=== PATIENT | male | born 1940 | race Caucasian/White ===

== ENCOUNTER 2017-03-27 22:37 | Emergency (ER) | payer OTHER ==
[2017-03-27 22:45] VITALS: RESP 16; TEMP 98.1; O2SAT 95
--- NOTE | 2017-03-27 23:21 | EDPHY ---
H & P Stated Complaint: feels like something is stuck in throat HPI/ROS: HPI The patient presents with foreign body sensation of throat. He says he ate dinner tonight which consisted of pork further zoo, CABG with apples, beats and Ross cell really. As he felt that something did not go down and that food was stuck in his throat. Because of this, he drink water, ate a peanut butter and jelly sandwich, coughed vigorously, however was not able to dislodge it. He does not have any difficulty tolerating his secretions, he does not have any drooling or vomiting. He over the last 1 hour began to experience hoarseness of his voice which was concerning to him so he came into the emergency department. In 2009 he was seen here in the emergency department after taking a vitamin C pill and had a similar constellation of symptoms. He had endoscopy performed which demonstrated epiglottitis. He was given Decadron, Benadryl, Pepcid. His symptoms were improved and he was discharged home. He has had no further episodes.. REVIEW OF SYSTEMS Constitutional: No fever, no chills. Eyes: No discharge. ENT: Positive for sore throat. Skin: No rashes. Neurological: No headache. PMHx: Hypertension, hypothyroidism Soc Hx: Lives at home with his PHYSICAL General Appearance: Alert, mild hoarseness of his voice Eyes: Pupils equal and round no pallor or injection ENT, Mouth: Mucous membranes moist, posterior pharynx appears normal Respiratory: Breathing comfortably Neurological: A&O, moves all extremities Skin: Warm and dry, no rashes Musculoskeletal: Neck is supple non tender Extremities: symmetrical, full range of motion Psychiatric: Patient is oriented X 3, there is no agitation Source: Patient Exam Limitations: No limitations - Personal History Current Tetanus/Diphtheria Vaccine: Unsure - Medical/Surgical History Hx Asthma: No Hx Chronic Respiratory Disease: No Hx Diabetes: No Hx Cardiac Disease: No Hx Renal Disease: No Hx Cirrhosis: No Hx Alcoholism: No Hx HIV/AIDS: No Hx Splenectomy or Spleen Trauma: No Other PMH: PMHx: hypothryoid, HTN, high triglycerides, kidney stones. PSHx: kidney stone, tonsillectomy - Social History Smoking Status: Never smoked Constitutional: Initial Vital Signs Temperature (C) 36.7 C 03/27/17 22:41 Heart Rate 81 03/27/17 22:41 Respiratory Rate 16 03/27/17 22:41 Blood Pressure 135/73 H 03/27/17 22:41 O2 Sat (%) 95 03/27/17 22:41 O2 Delivery Mode Room Air Allergies/Adverse Reactions: No Known Allergies Allergy (Unverified 09/26/09 21:12) Home Medications: Medication Instructions Recorded Aspirin EC 81 mg 09/26/09 Gemfibrozil 09/26/09 Levothyroxine 09/26/09 Lisinopril/Hctz 10 mg/12.5 mg 09/26/09 Medical Decision Making - Diagnostics Imaging Results: Imaging Impressions Soft Tissue Neck X-Ray 03/27/17 23:04 Impression: 1. Mild thickening of the epiglottis, which can be seen with epiglottitis. 2. 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 Findings discussed with Natasha Gupta MD 03/27/2017 at 23:36. Imaging: Discussed imaging studies w/ integrity engineer Radiologist, I viewed and interpreted images myself Differential Diagnosis: 76-year-old male with history of epiglottitis after swallowing a pill, now presents with feeling that something is stuck in his throat after eating dinner associated with hoarseness of his voice. Differential diagnosis includes epiglottitis, foreign body of oropharynx, proximal esophagus foreign body. In the emergency department, patient had soft tissue neck x-rays which did demonstrate prominent epiglottis. He his symptoms actually improved in the short time that he was here. I gave him Decadron, Pepcid, Benadryl which he had received for his previous episode, his symptoms continue to improve. I discussed the case with Dr. Chato Monteiro of [facility] who agrees on the above medications and that the patient can be safely discharged given resolution of symptoms with follow-up with ENT in the next few days. The patient is in agreement with this plan and is anxious to leave. - Data Points Medications Given: Discontinued Medications Dexamethasone (Decadron) 10 mg PO EDNOW ONE Stop: 03/27/17 23:41 Last Admin: 03/28/17 00:13 Dose: 10 mg Diphenhydramine HCl (Benadryl) 25 mg PO EDNOW ONE Stop: 03/27/17 23:41 Last Admin: 03/28/17 00:13 Dose: 25 mg Famotidine (Pepcid) 20 mg PO EDNOW ONE Stop: 03/27/17 23:42 Last Admin: 03/28/17 00:13 Dose: 20 mg Departure - Departure Disposition: Home, Routine, Self-Care Clinical Impression: Throat swelling, Hoarseness Condition: Good Instructions: Foreign Body in Pharynx (ED) Additional Instructions: Please return to the emergency department if you are worse in any way. Otherwise, call [facility]. Monteiro in the morning to arrange for a follow-up appointment in the next few days. Referrals: Genaro Mullins MD [Primary Care Provider] - As per Instructions Chato Monteiro MD [Medical Doctor] - As per Instructions
[2017-03-27] MEDS ORDERED: DEXAMETHASONE 4 MG TAB PO ONE (23:40)
[2017-03-27] MEDS ORDERED: diphenhydrAMINE 25 MG CAP PO ONE (23:40)
[2017-03-27] MEDS ORDERED: FAMOTIDINE 20 MG TAB PO ONE (23:41)
[2017-03-28 00:15] VITALS: BP 133/83; PULSE 76
== END 2017-03-28 00:13 | disposition home or self-care (01) ==
DX: R22.1 Localized swelling, mass and lump, neck (principal); R49.0 Dysphonia; I10 Essential (primary) hypertension; Z79.82 Long term (current) use of aspirin